=== PATIENT | male | born 1965 | race African-American/Black ===

== ENCOUNTER 2021-01-05 15:59 | Emergency (ER) | payer OTHER ==
[2021-01-05 16:15] VITALS: BP 128/80; PULSE 97; TEMP 98.3; BMI 31.8
== END 2021-01-05 17:00 | disposition home or self-care (01) ==
LOC: JER 15:59
DX: R60.9 Edema, unspecified (principal)
CPT/HCPCS: 99281-25

== ENCOUNTER 2022-07-01 08:35 | Inpatient (IN) | payer OTHER ==
[2022-07-01 09:20] VITALS: BMI 25.2
[2022-07-01] MEDS ORDERED: LOPERAMIDE HCL 2 MG CAPSULE PO PRN (12:34)
[2022-07-01] MEDS ORDERED: P-EPHED 60MG/TRIPROLIDI 2.5MG TABLET PO PRN (12:34)
[2022-07-01] MEDS ORDERED: MAGNESIUM CITRATE 300 ML BOTTLE PO PRN (12:34)
[2022-07-01] MEDS ORDERED: NICOTINE 10 MG CARTRIDGE (INHALER) IH PRN (12:34)
[2022-07-01] MEDS ORDERED: MAG HYDROX/AL HYDROX/SIMETH 30 ML UNIT-DOSE CUP PO PRN (12:34)
[2022-07-01] MEDS ORDERED: guaiFENesin 200 MG/10 ML 10 ML UNIT-DOSE CUPS PO PRN (12:34)
[2022-07-01] MEDS ORDERED: MAGNESIUM HYDROX 2400MG/30ML ORAL SUSPENSION 30 ML CUP PO PRN (12:34)
[2022-07-01] MEDS ORDERED: IBUPROFEN 400 MG TABLET (FP) PO PRN (12:34)
[2022-07-01] MEDS ORDERED: DICLOFENAC SODIUM TP PRN (13:26)
[2022-07-01] MEDS: hydrOXYzine PAMOATE 25 MG CAPSULE (FP) PO SCH ×3 (14:54→21:40)
[2022-07-01] MEDS: NICOTINE 7 MG/24 HOURS TOPICAL PATCH TD SCH (14:54)
[2022-07-01] MEDS ORDERED: methaDONE HCL 10 MG TABLET PO SCH (15:00)
[2022-07-01] MEDS: PRENATAL VITAMINS W/ FOLIC ACID TABLET (FP) PO SCH (15:59)
[2022-07-01] MEDS ORDERED: METOPROLOL TARTRATE 25 MG TABLET (FP) PO ONE (16:24)
[2022-07-01 17:26] LABS: HEMATOCRIT 45.6 % (35.4-49); HEMOGLOBIN 14.8 GM/dL (11.7-16.9); MCH 27.4 pg (25.7-33.7); MCHC 32.6 g/dl (32.0-35.9); MEAN CELL VOLUME 84.1 fl (80-96); MEAN PLT VOLUME 8.1 fl (7.5-11.1); PLATELET COUNT 344 10^3/uL (134-434); RBC 5.42 M/mm3 (4.00-5.60); RDW 14.3 % (11.9-15.9); WHITE BLOOD COUNT 6.1 K/mm3 (4.0-10.0)
[2022-07-01 17:32] LABS: CALCIUM 9.1 mg/dL (8.5-10.1)
[2022-07-01 17:33] LABS: ALBUMIN 3.2 g/dl (3.4-5.0); BLOOD UREA NITROGEN 16.1 mg/dL (7-18)
[2022-07-01 17:38] LABS: BILIRUBIN,TOTAL 0.4 mg/dL (0.2-1)
[2022-07-01 19:27] LABS: SYPHILIS W/ RPR CONF REACTIVE (NONREACTIVE)
[2022-07-01] MEDS: SENNOSIDES 8.6MG TABLET (FP) PO SCH (21:40)
[2022-07-01] MEDS: THIAMINE HCL 100 MG TABLET (FP) PO SCH (21:40)
[2022-07-01] MEDS: MELATONIN 5 MG TABLETS PO SCH (21:41)
[2022-07-01] MEDS ORDERED: LISINOPRIL 5 MG TABLET PO ONE (21:45)
[2022-07-01] MEDS: ALBUTEROL SO4 HFA INHALER IH PRN (22:10)
[2022-07-02] MEDS: hydrOXYzine PAMOATE 25 MG CAPSULE (FP) PO SCH ×5 (06:31→21:59)
[2022-07-02] MEDS: ALBUTEROL SO4 HFA INHALER IH PRN (06:31)
[2022-07-02] MEDS: PRENATAL VITAMINS W/ FOLIC ACID TABLET (FP) PO SCH (10:40)
[2022-07-02] MEDS: NICOTINE 7 MG/24 HOURS TOPICAL PATCH TD SCH (10:40)
[2022-07-02] MEDS: SENNOSIDES 8.6MG TABLET (FP) PO SCH ×2 (10:41→21:58)
[2022-07-02] MEDS: PATIENT'S OWN MEDICATION (NON-FORMULARY) (Budesonide/Glycopyr/Formoterol [Breztri Aerosphe IH SCH ×3 (11:35→11:44)
[2022-07-02] MEDS ORDERED: PNEUMOC 20-VAL CONJ-DIP CRM/PF 0.5 ML SYRINGE IM ONE (12:00)
[2022-07-02] MEDS ORDERED: FLU VACC QS2022-23(6MOS UP)/PF 60 MCG/0.5 ML SYRINGE IM ONE (12:00)
[2022-07-02] MEDS: PATIENT'S OWN MEDICATION (NON-FORMULARY) (Amlodipine Bes/Olmesartan Med [Amlodipine-Olmesa PO SCH ×2 (12:26→15:56)
[2022-07-02] MEDS: PATIENT'S OWN MEDICATION (NON-FORMULARY) (Omeprazole 20 MG Capsule.Dr) PO SCH ×4 (12:26→21:59)
[2022-07-02] MEDS ORDERED: PENICILLIN G BENZATHINE 2,400,000 UNIT/4 ML PFS IM ONE (15:44)
[2022-07-02] MEDS: IBUPROFEN 800 MG PO PRN (15:55)
[2022-07-02] MEDS: PATIENT'S OWN MEDICATION (NON-FORMULARY) (Budesonide/Glycopyr/Formoterol [Breztri Aerosphe IH PRN (15:55)
[2022-07-02] MEDS: DOCUSATE SODIUM 100 MG CAPSULE (FP) PO SCH (21:58)
[2022-07-02] MEDS: MELATONIN 5 MG TABLETS PO SCH (21:58)
[2022-07-02] MEDS: QUEtiapine FUMARATE 200 MG TABLET PO SCH (21:58)
[2022-07-02] MEDS: THIAMINE HCL 100 MG TABLET (FP) PO SCH (21:59)
[2022-07-02] MEDS: HYDROCORTISONE 2.5% TOPICAL CREAM 30 GM TUBE RC SCH (22:45)
[2022-07-03] MEDS: IBUPROFEN 800 MG PO PRN ×2 (06:54→19:15)
[2022-07-03] MEDS: hydrOXYzine PAMOATE 25 MG CAPSULE (FP) PO SCH ×5 (06:54→21:39)
[2022-07-03] MEDS: PRENATAL VITAMINS W/ FOLIC ACID TABLET (FP) PO SCH (10:06)
[2022-07-03] MEDS: PATIENT'S OWN MEDICATION (NON-FORMULARY) (Omeprazole 20 MG Capsule.Dr) PO SCH ×2 (10:07→21:39)
[2022-07-03] MEDS: PATIENT'S OWN MEDICATION (NON-FORMULARY) (Amlodipine Bes/Olmesartan Med [Amlodipine-Olmesa PO SCH (10:07)
[2022-07-03] MEDS: SENNOSIDES 8.6MG TABLET (FP) PO SCH ×2 (10:07→21:38)
[2022-07-03] MEDS: DOCUSATE SODIUM 100 MG CAPSULE (FP) PO SCH ×2 (10:07→21:38)
[2022-07-03] MEDS: HYDROCORTISONE 2.5% TOPICAL CREAM 30 GM TUBE RC SCH (10:07)
[2022-07-03] MEDS: NICOTINE 7 MG/24 HOURS TOPICAL PATCH TD SCH (10:08)
[2022-07-03 17:00] LABS: PH,URINE 5.5 (5.0-8.0); URINE APPEARANCE CLEAR; URINE BILIRUBIN NEGATIVE (NEGATIVE); URINE COLOR YELLOW; URINE GLUCOSE (UA) NEGATIVE (NEGATIVE); URINE KETONE NEGATIVE (NEGATIVE); URINE LEUK ESTERASE NEGATIVE (NEGATIVE); URINE NITRITE NEGATIVE (NEGATIVE); URINE PROTEIN NEGATIVE (NEGATIVE); URINE UROBILINOGEN 0.2 mg/dL (0.2-1.0)
[2022-07-03] MEDS: QUEtiapine FUMARATE 200 MG TABLET PO SCH (21:38)
[2022-07-03] MEDS: MELATONIN 5 MG TABLETS PO SCH (21:38)
[2022-07-03] MEDS: THIAMINE HCL 100 MG TABLET (FP) PO SCH (21:38)
[2022-07-03] MEDS: ALBUTEROL SO4 HFA INHALER IH PRN (21:41)
[2022-07-04] MEDS: hydrOXYzine PAMOATE 25 MG CAPSULE (FP) PO SCH ×5 (07:07→21:43)
[2022-07-04] MEDS: methaDONE HCL 40 MG DISPERSABLE TABLET PO SCH (07:07)
[2022-07-04] MEDS: DOCUSATE SODIUM 100 MG CAPSULE (FP) PO SCH ×2 (10:07→21:42)
[2022-07-04] MEDS: SENNOSIDES 8.6MG TABLET (FP) PO SCH ×2 (10:07→21:43)
[2022-07-04] MEDS: IBUPROFEN 800 MG PO PRN (10:08)
[2022-07-04] MEDS: ALBUTEROL SO4 HFA INHALER IH PRN ×2 (10:08→16:32)
[2022-07-04] MEDS: HYDROCORTISONE 2.5% TOPICAL CREAM 30 GM TUBE RC SCH (10:09)
[2022-07-04] MEDS: NICOTINE 7 MG/24 HOURS TOPICAL PATCH TD SCH (10:09)
[2022-07-04] MEDS: PATIENT'S OWN MEDICATION (NON-FORMULARY) (Amlodipine Bes/Olmesartan Med [Amlodipine-Olmesa PO SCH (10:09)
[2022-07-04] MEDS: PATIENT'S OWN MEDICATION (NON-FORMULARY) (Omeprazole 20 MG Capsule.Dr) PO SCH ×2 (10:09→22:10)
[2022-07-04] MEDS: PRENATAL VITAMINS W/ FOLIC ACID TABLET (FP) PO SCH (10:09)
[2022-07-04] MEDS: guaiFENesin 600 MG TABLET.ER (FP) PO SCH ×2 (11:58→21:42)
[2022-07-04] MEDS: NAPROXEN 500 MG TABLET PO PRN ×2 (14:41→21:42)
[2022-07-04] MEDS: THIAMINE HCL 100 MG TABLET (FP) PO SCH (21:42)
[2022-07-04] MEDS: QUEtiapine FUMARATE 200 MG TABLET PO SCH (21:42)
[2022-07-04] MEDS: MELATONIN 5 MG TABLETS PO SCH (22:10)
[2022-07-05] MEDS: methaDONE HCL 40 MG DISPERSABLE TABLET PO SCH (07:06)
[2022-07-05] MEDS: hydrOXYzine PAMOATE 25 MG CAPSULE (FP) PO SCH ×5 (07:06→21:31)
[2022-07-05] MEDS: PRENATAL VITAMINS W/ FOLIC ACID TABLET (FP) PO SCH (10:15)
[2022-07-05] MEDS: PATIENT'S OWN MEDICATION (NON-FORMULARY) (Amlodipine Bes/Olmesartan Med [Amlodipine-Olmesa PO SCH (10:16)
[2022-07-05] MEDS: SENNOSIDES 8.6MG TABLET (FP) PO SCH ×2 (10:16→21:31)
[2022-07-05] MEDS: DOCUSATE SODIUM 100 MG CAPSULE (FP) PO SCH ×2 (10:16→21:31)
[2022-07-05] MEDS: PATIENT'S OWN MEDICATION (NON-FORMULARY) (Omeprazole 20 MG Capsule.Dr) PO SCH ×2 (10:17→21:32)
[2022-07-05] MEDS: NICOTINE 7 MG/24 HOURS TOPICAL PATCH TD SCH (10:18)
[2022-07-05] MEDS: HYDROCORTISONE 2.5% TOPICAL CREAM 30 GM TUBE RC SCH (10:21)
[2022-07-05] MEDS: guaiFENesin 600 MG TABLET.ER (FP) PO SCH ×2 (10:21→21:31)
[2022-07-05] MEDS: NAPROXEN 500 MG TABLET PO PRN (15:43)
[2022-07-05] MEDS: ALBUTEROL SO4 HFA INHALER IH PRN (19:47)
[2022-07-05] MEDS: THIAMINE HCL 100 MG TABLET (FP) PO SCH (21:31)
[2022-07-05] MEDS: MELATONIN 5 MG TABLETS PO SCH (21:31)
[2022-07-05] MEDS: QUEtiapine FUMARATE 200 MG TABLET PO SCH (21:31)
[2022-07-06] MEDS: methaDONE HCL 40 MG DISPERSABLE TABLET PO SCH (06:56)
[2022-07-06] MEDS: hydrOXYzine PAMOATE 25 MG CAPSULE (FP) PO SCH ×5 (06:57→21:04)
[2022-07-06] MEDS: SENNOSIDES 8.6MG TABLET (FP) PO SCH ×2 (10:03→21:05)
[2022-07-06] MEDS: PRENATAL VITAMINS W/ FOLIC ACID TABLET (FP) PO SCH (10:03)
[2022-07-06] MEDS: DOCUSATE SODIUM 100 MG CAPSULE (FP) PO SCH ×2 (10:03→21:04)
[2022-07-06] MEDS: PATIENT'S OWN MEDICATION (NON-FORMULARY) (Amlodipine Bes/Olmesartan Med [Amlodipine-Olmesa PO SCH (10:04)
[2022-07-06] MEDS: PATIENT'S OWN MEDICATION (NON-FORMULARY) (Omeprazole 20 MG Capsule.Dr) PO SCH ×2 (10:05→21:06)
[2022-07-06] MEDS: guaiFENesin 600 MG TABLET.ER (FP) PO SCH ×2 (10:06→21:04)
[2022-07-06] MEDS: NICOTINE 7 MG/24 HOURS TOPICAL PATCH TD SCH ×2 (10:07→10:28)
[2022-07-06] MEDS: HYDROCORTISONE 2.5% TOPICAL CREAM 30 GM TUBE RC SCH (10:07)
[2022-07-06] MEDS: ALBUTEROL SO4 HFA INHALER IH PRN ×2 (10:29→21:14)
[2022-07-06] MEDS: NAPROXEN 500 MG TABLET PO PRN (17:55)
[2022-07-06] MEDS: QUEtiapine FUMARATE 200 MG TABLET PO SCH (21:04)
[2022-07-06] MEDS: THIAMINE HCL 100 MG TABLET (FP) PO SCH (21:05)
[2022-07-06] MEDS: MELATONIN 5 MG TABLETS PO SCH (21:06)
[2022-07-07] MEDS: methaDONE HCL 40 MG DISPERSABLE TABLET PO SCH (06:12)
[2022-07-07] MEDS: hydrOXYzine PAMOATE 25 MG CAPSULE (FP) PO SCH ×2 (06:13→10:35)
[2022-07-07] MEDS: SENNOSIDES 8.6MG TABLET (FP) PO SCH ×2 (10:31→21:26)
[2022-07-07] MEDS: DOCUSATE SODIUM 100 MG CAPSULE (FP) PO SCH ×2 (10:31→21:26)
[2022-07-07] MEDS: PRENATAL VITAMINS W/ FOLIC ACID TABLET (FP) PO SCH (10:31)
[2022-07-07] MEDS: PATIENT'S OWN MEDICATION (NON-FORMULARY) (Amlodipine Bes/Olmesartan Med [Amlodipine-Olmesa PO SCH (10:31)
[2022-07-07] MEDS: PATIENT'S OWN MEDICATION (NON-FORMULARY) (Omeprazole 20 MG Capsule.Dr) PO SCH ×2 (10:31→22:07)
[2022-07-07] MEDS: guaiFENesin 600 MG TABLET.ER (FP) PO SCH ×2 (10:32→21:26)
[2022-07-07] MEDS: NICOTINE 7 MG/24 HOURS TOPICAL PATCH TD SCH (10:32)
[2022-07-07] MEDS: HYDROCORTISONE 2.5% TOPICAL CREAM 30 GM TUBE RC SCH (10:32)
[2022-07-07] MEDS: NAPROXEN 500 MG TABLET PO PRN (10:34)
[2022-07-07] MEDS: BACITRACIN 15 GM TUBE TOPICAL OINTMENT TP SCH (13:07)
[2022-07-07] MEDS: ALBUTEROL SO4 HFA INHALER IH PRN (14:28)
[2022-07-07] MEDS: THIAMINE HCL 100 MG TABLET (FP) PO SCH (21:26)
[2022-07-07] MEDS: MELATONIN 5 MG TABLETS PO SCH (21:26)
[2022-07-07] MEDS: QUEtiapine FUMARATE 200 MG TABLET PO SCH (21:27)
[2022-07-08] MEDS: methaDONE HCL 40 MG DISPERSABLE TABLET PO SCH (07:13)
[2022-07-08] MEDS: PRENATAL VITAMINS W/ FOLIC ACID TABLET (FP) PO SCH (10:13)
[2022-07-08] MEDS: SENNOSIDES 8.6MG TABLET (FP) PO SCH ×2 (10:14→21:33)
[2022-07-08] MEDS: BACITRACIN 15 GM TUBE TOPICAL OINTMENT TP SCH (10:14)
[2022-07-08] MEDS: PATIENT'S OWN MEDICATION (NON-FORMULARY) (Omeprazole 20 MG Capsule.Dr) PO SCH ×2 (10:14→22:08)
[2022-07-08] MEDS: NICOTINE 7 MG/24 HOURS TOPICAL PATCH TD SCH (10:14)
[2022-07-08] MEDS: DOCUSATE SODIUM 100 MG CAPSULE (FP) PO SCH ×2 (10:14→21:33)
[2022-07-08] MEDS: HYDROCORTISONE 2.5% TOPICAL CREAM 30 GM TUBE RC SCH (10:14)
[2022-07-08] MEDS: PATIENT'S OWN MEDICATION (NON-FORMULARY) (Amlodipine Bes/Olmesartan Med [Amlodipine-Olmesa PO SCH (10:14)
[2022-07-08] MEDS: guaiFENesin 600 MG TABLET.ER (FP) PO SCH ×2 (10:15→21:33)
[2022-07-08] MEDS: LIDOCAINE VISCOUS 2% ORAL/TOP 15 ML UNIT-DOSE CUP MM PRN (11:13)
[2022-07-08] MEDS: NAPROXEN 500 MG TABLET PO PRN (16:49)
[2022-07-08] MEDS: MELATONIN 5 MG TABLETS PO SCH (21:33)
[2022-07-08] MEDS: THIAMINE HCL 100 MG TABLET (FP) PO SCH (21:34)
[2022-07-08] MEDS: QUEtiapine FUMARATE 200 MG TABLET PO SCH (21:34)
[2022-07-08] MEDS: ACETAMINOPHEN 325 MG TABLET (FP) PO PRN (21:34)
[2022-07-09] MEDS ORDERED: PENICILLIN G BENZATHINE 2,400,000 UNIT/4 ML PFS IM ONE (06:00)
[2022-07-09] MEDS ORDERED: methaDONE HCL 10 MG TABLET PO SCH (06:00)
[2022-07-09] MEDS: methaDONE 80 MG, methaDONE 20 MG PO SCH (07:03)
[2022-07-09] MEDS: PRENATAL VITAMINS W/ FOLIC ACID TABLET (FP) PO SCH (10:02)
[2022-07-09] MEDS: DOCUSATE SODIUM 100 MG CAPSULE (FP) PO SCH ×2 (10:03→21:36)
[2022-07-09] MEDS: SENNOSIDES 8.6MG TABLET (FP) PO SCH ×2 (10:03→21:36)
[2022-07-09] MEDS: NICOTINE 7 MG/24 HOURS TOPICAL PATCH TD SCH (10:04)
[2022-07-09] MEDS: BACITRACIN 15 GM TUBE TOPICAL OINTMENT TP SCH (10:04)
[2022-07-09] MEDS: PATIENT'S OWN MEDICATION (NON-FORMULARY) (Amlodipine Bes/Olmesartan Med [Amlodipine-Olmesa PO SCH (10:06)
[2022-07-09] MEDS: HYDROCORTISONE 2.5% TOPICAL CREAM 30 GM TUBE RC SCH (10:07)
[2022-07-09] MEDS: guaiFENesin 600 MG TABLET.ER (FP) PO SCH ×2 (10:08→21:38)
[2022-07-09] MEDS: NAPROXEN 500 MG TABLET PO PRN ×3 (10:09→21:36)
[2022-07-09] MEDS: PATIENT'S OWN MEDICATION (NON-FORMULARY) (Omeprazole 20 MG Capsule.Dr) PO SCH ×2 (10:09→21:37)
[2022-07-09] MEDS: THIAMINE HCL 100 MG TABLET (FP) PO SCH (21:35)
[2022-07-09] MEDS: QUEtiapine FUMARATE 200 MG TABLET PO SCH (21:36)
[2022-07-09] MEDS: hydrOXYzine PAMOATE 25 MG CAPSULE (FP) PO PRN (21:36)
[2022-07-09] MEDS: ALBUTEROL SO4 HFA INHALER IH PRN (21:40)
[2022-07-09] MEDS: LIDOCAINE VISCOUS 2% ORAL/TOP 15 ML UNIT-DOSE CUP MM PRN (21:41)
[2022-07-09] MEDS: MELATONIN 5 MG TABLETS PO SCH (21:44)
[2022-07-10] MEDS: methaDONE 80 MG, methaDONE 20 MG PO SCH (06:10)
[2022-07-10] MEDS: PATIENT'S OWN MEDICATION (NON-FORMULARY) (Omeprazole 20 MG Capsule.Dr) PO SCH ×2 (10:23→21:19)
[2022-07-10] MEDS: PRENATAL VITAMINS W/ FOLIC ACID TABLET (FP) PO SCH (10:23)
[2022-07-10] MEDS: SENNOSIDES 8.6MG TABLET (FP) PO SCH ×2 (10:24→21:19)
[2022-07-10] MEDS: guaiFENesin 600 MG TABLET.ER (FP) PO SCH ×2 (10:24→21:20)
[2022-07-10] MEDS: DOCUSATE SODIUM 100 MG CAPSULE (FP) PO SCH ×2 (10:24→21:19)
[2022-07-10] MEDS: HYDROCORTISONE 2.5% TOPICAL CREAM 30 GM TUBE RC SCH (10:25)
[2022-07-10] MEDS: PATIENT'S OWN MEDICATION (NON-FORMULARY) (Amlodipine Bes/Olmesartan Med [Amlodipine-Olmesa PO SCH (10:26)
[2022-07-10] MEDS: NICOTINE 7 MG/24 HOURS TOPICAL PATCH TD SCH (10:26)
[2022-07-10] MEDS: BACITRACIN 15 GM TUBE TOPICAL OINTMENT TP SCH (10:26)
[2022-07-10] MEDS: MELATONIN 5 MG TABLETS PO SCH (21:19)
[2022-07-10] MEDS: THIAMINE HCL 100 MG TABLET (FP) PO SCH (21:19)
[2022-07-10] MEDS: QUEtiapine FUMARATE 200 MG TABLET PO SCH (21:19)
[2022-07-10] MEDS: NAPROXEN 500 MG TABLET PO PRN (21:20)
[2022-07-11] MEDS: methaDONE 80 MG, methaDONE 20 MG PO SCH (07:11)
[2022-07-11] MEDS: ALBUTEROL SO4 HFA INHALER IH PRN ×2 (09:08→21:17)
[2022-07-11] MEDS: guaiFENesin 600 MG TABLET.ER (FP) PO SCH ×2 (09:09→21:13)
[2022-07-11] MEDS: PRENATAL VITAMINS W/ FOLIC ACID TABLET (FP) PO SCH (11:07)
[2022-07-11] MEDS: DOCUSATE SODIUM 100 MG CAPSULE (FP) PO SCH ×2 (11:08→21:13)
[2022-07-11] MEDS: PATIENT'S OWN MEDICATION (NON-FORMULARY) (Omeprazole 20 MG Capsule.Dr) PO SCH ×2 (11:08→21:16)
[2022-07-11] MEDS: SENNOSIDES 8.6MG TABLET (FP) PO SCH ×2 (11:08→21:14)
[2022-07-11] MEDS: BACITRACIN 15 GM TUBE TOPICAL OINTMENT TP SCH (11:09)
[2022-07-11] MEDS: PATIENT'S OWN MEDICATION (NON-FORMULARY) (Amlodipine Bes/Olmesartan Med [Amlodipine-Olmesa PO SCH (11:09)
[2022-07-11] MEDS: HYDROCORTISONE 2.5% TOPICAL CREAM 30 GM TUBE RC SCH (11:09)
[2022-07-11] MEDS: NICOTINE 7 MG/24 HOURS TOPICAL PATCH TD SCH (11:09)
[2022-07-11] MEDS: ACETAMINOPHEN 325 MG TABLET (FP) PO PRN ×2 (16:52→21:15)
[2022-07-11] MEDS: QUEtiapine FUMARATE 200 MG TABLET PO SCH (21:14)
[2022-07-11] MEDS: THIAMINE HCL 100 MG TABLET (FP) PO SCH (21:14)
[2022-07-11] MEDS: MELATONIN 5 MG TABLETS PO SCH (21:14)
[2022-07-12] MEDS: ALBUTEROL SO4 HFA INHALER IH PRN ×2 (04:21→21:19)
[2022-07-12] MEDS: NAPROXEN 500 MG TABLET PO PRN (04:25)
[2022-07-12] MEDS: methaDONE 80 MG, methaDONE 20 MG PO SCH (06:51)
[2022-07-12] MEDS: ACETAMINOPHEN 325 MG TABLET (FP) PO PRN ×2 (06:52→21:20)
[2022-07-12 06:57] VITALS: RESP 18
[2022-07-12] MEDS: SENNOSIDES 8.6MG TABLET (FP) PO SCH ×2 (10:16→21:21)
[2022-07-12] MEDS: PATIENT'S OWN MEDICATION (NON-FORMULARY) (Amlodipine Bes/Olmesartan Med [Amlodipine-Olmesa PO SCH (10:16)
[2022-07-12] MEDS: NICOTINE 7 MG/24 HOURS TOPICAL PATCH TD SCH (10:16)
[2022-07-12] MEDS: PRENATAL VITAMINS W/ FOLIC ACID TABLET (FP) PO SCH (10:16)
[2022-07-12] MEDS: DOCUSATE SODIUM 100 MG CAPSULE (FP) PO SCH ×2 (10:16→21:22)
[2022-07-12] MEDS: HYDROCORTISONE 2.5% TOPICAL CREAM 30 GM TUBE RC SCH (10:17)
[2022-07-12] MEDS: BACITRACIN 15 GM TUBE TOPICAL OINTMENT TP SCH (10:17)
[2022-07-12] MEDS: guaiFENesin 600 MG TABLET.ER (FP) PO SCH ×2 (10:17→21:21)
[2022-07-12] MEDS: PATIENT'S OWN MEDICATION (NON-FORMULARY) (Omeprazole 20 MG Capsule.Dr) PO SCH ×2 (10:17→22:26)
[2022-07-12] MEDS: MELATONIN 5 MG TABLETS PO SCH (21:21)
[2022-07-12] MEDS: QUEtiapine FUMARATE 200 MG TABLET PO SCH (21:21)
[2022-07-12] MEDS: THIAMINE HCL 100 MG TABLET (FP) PO SCH (21:21)
[2022-07-12] MEDS: hydrOXYzine PAMOATE 25 MG CAPSULE (FP) PO PRN (21:22)
[2022-07-13] MEDS: methaDONE 80 MG, methaDONE 20 MG PO SCH (07:02)
[2022-07-13] MEDS: NAPROXEN 500 MG TABLET PO PRN (07:03)
[2022-07-13] MEDS: SENNOSIDES 8.6MG TABLET (FP) PO SCH ×2 (09:37→21:20)
[2022-07-13] MEDS: PRENATAL VITAMINS W/ FOLIC ACID TABLET (FP) PO SCH (09:37)
[2022-07-13] MEDS: PATIENT'S OWN MEDICATION (NON-FORMULARY) (Omeprazole 20 MG Capsule.Dr) PO SCH ×2 (09:37→21:20)
[2022-07-13] MEDS: DOCUSATE SODIUM 100 MG CAPSULE (FP) PO SCH ×2 (09:37→21:20)
[2022-07-13] MEDS: guaiFENesin 600 MG TABLET.ER (FP) PO SCH ×2 (09:38→21:19)
[2022-07-13] MEDS: HYDROCORTISONE 2.5% TOPICAL CREAM 30 GM TUBE RC SCH (09:38)
[2022-07-13] MEDS: PATIENT'S OWN MEDICATION (NON-FORMULARY) (Amlodipine Bes/Olmesartan Med [Amlodipine-Olmesa PO SCH (09:38)
[2022-07-13] MEDS: NICOTINE 7 MG/24 HOURS TOPICAL PATCH TD SCH (09:39)
[2022-07-13] MEDS: ALBUTEROL SO4 HFA INHALER IH PRN ×2 (11:18→19:45)
[2022-07-13] MEDS: QUEtiapine FUMARATE 200 MG TABLET PO SCH (21:19)
[2022-07-13] MEDS: ACETAMINOPHEN 325 MG TABLET (FP) PO PRN (21:20)
[2022-07-13] MEDS: hydrOXYzine PAMOATE 25 MG CAPSULE (FP) PO PRN (21:20)
[2022-07-13] MEDS: THIAMINE HCL 100 MG TABLET (FP) PO SCH (21:20)
[2022-07-13] MEDS: MELATONIN 5 MG TABLETS PO SCH (21:20)
[2022-07-14] MEDS: ALBUTEROL SO4 HFA INHALER IH PRN ×2 (05:10→13:43)
[2022-07-14] MEDS: methaDONE 80 MG, methaDONE 20 MG PO SCH (06:42)
[2022-07-14] MEDS: PRENATAL VITAMINS W/ FOLIC ACID TABLET (FP) PO SCH (10:03)
[2022-07-14] MEDS: LIDOCAINE 5% TOPICAL PATCH TP SCH (10:04)
[2022-07-14] MEDS: guaiFENesin 600 MG TABLET.ER (FP) PO SCH ×2 (10:04→21:36)
[2022-07-14] MEDS: PATIENT'S OWN MEDICATION (NON-FORMULARY) (Omeprazole 20 MG Capsule.Dr) PO SCH ×2 (10:04→21:37)
[2022-07-14] MEDS: HYDROCORTISONE 2.5% TOPICAL CREAM 30 GM TUBE RC SCH (10:05)
[2022-07-14] MEDS: SENNOSIDES 8.6MG TABLET (FP) PO SCH ×2 (10:05→21:36)
[2022-07-14] MEDS: NICOTINE 7 MG/24 HOURS TOPICAL PATCH TD SCH (10:05)
[2022-07-14] MEDS: DOCUSATE SODIUM 100 MG CAPSULE (FP) PO SCH ×2 (10:05→21:36)
[2022-07-14] MEDS: PATIENT'S OWN MEDICATION (NON-FORMULARY) (Amlodipine Bes/Olmesartan Med [Amlodipine-Olmesa PO SCH (10:05)
[2022-07-14] MEDS: NAPROXEN 500 MG TABLET PO PRN ×2 (10:06→21:38)
[2022-07-14] MEDS ORDERED: HYDROCHLOROTHIAZIDE 25 MG TABLET (FP) PO ONE (13:00)
[2022-07-14] MEDS: MELATONIN 5 MG TABLETS PO SCH (21:36)
[2022-07-14] MEDS: QUEtiapine FUMARATE 200 MG TABLET PO SCH (21:36)
[2022-07-14] MEDS: LIDOCAINE PATCH REMOVAL MC SCH (21:37)
[2022-07-14] MEDS: THIAMINE HCL 100 MG TABLET (FP) PO SCH (22:01)
[2022-07-15] MEDS: methaDONE 80 MG, methaDONE 20 MG PO SCH (07:22)
[2022-07-15] MEDS: guaiFENesin 600 MG TABLET.ER (FP) PO SCH ×2 (09:28→21:20)
[2022-07-15] MEDS: PRENATAL VITAMINS W/ FOLIC ACID TABLET (FP) PO SCH (09:28)
[2022-07-15] MEDS: DOCUSATE SODIUM 100 MG CAPSULE (FP) PO SCH ×2 (09:28→21:20)
[2022-07-15] MEDS: NICOTINE 7 MG/24 HOURS TOPICAL PATCH TD SCH (09:28)
[2022-07-15] MEDS: SENNOSIDES 8.6MG TABLET (FP) PO SCH ×2 (09:28→21:20)
[2022-07-15] MEDS: PATIENT'S OWN MEDICATION (NON-FORMULARY) (Amlodipine Bes/Olmesartan Med [Amlodipine-Olmesa PO SCH (09:28)
[2022-07-15] MEDS: PATIENT'S OWN MEDICATION (NON-FORMULARY) (Omeprazole 20 MG Capsule.Dr) PO SCH ×2 (09:29→21:21)
[2022-07-15] MEDS: HYDROCORTISONE 2.5% TOPICAL CREAM 30 GM TUBE RC SCH (09:29)
[2022-07-15] MEDS: LIDOCAINE 5% TOPICAL PATCH TP SCH (09:32)
[2022-07-15] MEDS: ALBUTEROL SO4 HFA INHALER IH PRN (12:27)
[2022-07-15] MEDS: QUEtiapine FUMARATE 200 MG TABLET PO SCH (21:20)
[2022-07-15] MEDS: THIAMINE HCL 100 MG TABLET (FP) PO SCH (21:21)
[2022-07-15] MEDS: LIDOCAINE PATCH REMOVAL MC SCH (21:21)
[2022-07-15] MEDS: MELATONIN 5 MG TABLETS PO SCH (21:21)
[2022-07-16] MEDS ORDERED: PENICILLIN G BENZATHINE 2,400,000 UNIT/4 ML PFS IM ONE (06:00)
[2022-07-16] MEDS ORDERED: methaDONE HCL 10 MG TABLET PO SCH (07:45)
[2022-07-16] MEDS: methaDONE 80 MG, methaDONE 20 MG PO SCH (07:58)
[2022-07-16] MEDS: guaiFENesin 600 MG TABLET.ER (FP) PO SCH ×2 (11:05→21:16)
[2022-07-16] MEDS: NAPROXEN 500 MG TABLET PO PRN (11:05)
[2022-07-16] MEDS: SENNOSIDES 8.6MG TABLET (FP) PO SCH ×2 (11:05→21:15)
[2022-07-16] MEDS: PATIENT'S OWN MEDICATION (NON-FORMULARY) (Amlodipine Bes/Olmesartan Med [Amlodipine-Olmesa PO SCH (11:06)
[2022-07-16] MEDS: PATIENT'S OWN MEDICATION (NON-FORMULARY) (Omeprazole 20 MG Capsule.Dr) PO SCH ×2 (11:06→21:18)
[2022-07-16] MEDS: ALBUTEROL SO4 HFA INHALER IH PRN (11:07)
[2022-07-16] MEDS: LIDOCAINE 5% TOPICAL PATCH TP SCH (11:09)
[2022-07-16] MEDS: NICOTINE 7 MG/24 HOURS TOPICAL PATCH TD SCH (11:11)
[2022-07-16] MEDS: DOCUSATE SODIUM 100 MG CAPSULE (FP) PO SCH ×2 (11:11→21:16)
[2022-07-16] MEDS: PRENATAL VITAMINS W/ FOLIC ACID TABLET (FP) PO SCH (11:12)
[2022-07-16] MEDS: HYDROCORTISONE 2.5% TOPICAL CREAM 30 GM TUBE RC SCH (11:12)
[2022-07-16] MEDS: MELATONIN 5 MG TABLETS PO SCH (21:15)
[2022-07-16] MEDS: QUEtiapine FUMARATE 200 MG TABLET PO SCH (21:16)
[2022-07-16] MEDS: LIDOCAINE PATCH REMOVAL MC SCH (21:16)
[2022-07-16] MEDS: THIAMINE HCL 100 MG TABLET (FP) PO SCH (21:16)
[2022-07-17] MEDS: methaDONE 80 MG, methaDONE 20 MG PO SCH (06:34)
[2022-07-17] MEDS: ALBUTEROL SO4 HFA INHALER IH PRN ×3 (06:38→18:39)
[2022-07-17] MEDS: PRENATAL VITAMINS W/ FOLIC ACID TABLET (FP) PO SCH (11:03)
[2022-07-17] MEDS: LIDOCAINE 5% TOPICAL PATCH TP SCH (11:03)
[2022-07-17] MEDS: DOCUSATE SODIUM 100 MG CAPSULE (FP) PO SCH ×2 (11:04→21:13)
[2022-07-17] MEDS: PATIENT'S OWN MEDICATION (NON-FORMULARY) (Amlodipine Bes/Olmesartan Med [Amlodipine-Olmesa PO SCH (11:04)
[2022-07-17] MEDS: guaiFENesin 600 MG TABLET.ER (FP) PO SCH ×2 (11:04→21:13)
[2022-07-17] MEDS: SENNOSIDES 8.6MG TABLET (FP) PO SCH ×2 (11:04→21:13)
[2022-07-17] MEDS: NICOTINE 7 MG/24 HOURS TOPICAL PATCH TD SCH (11:04)
[2022-07-17] MEDS: NAPROXEN 500 MG TABLET PO PRN (11:04)
[2022-07-17] MEDS: PATIENT'S OWN MEDICATION (NON-FORMULARY) (Omeprazole 20 MG Capsule.Dr) PO SCH ×2 (11:04→21:48)
[2022-07-17] MEDS: HYDROCORTISONE 2.5% TOPICAL CREAM 30 GM TUBE RC SCH (11:07)
[2022-07-17] MEDS: QUEtiapine FUMARATE 200 MG TABLET PO SCH (21:13)
[2022-07-17] MEDS: MELATONIN 5 MG TABLETS PO SCH (21:13)
[2022-07-17] MEDS: THIAMINE HCL 100 MG TABLET (FP) PO SCH (21:13)
[2022-07-17] MEDS: hydrOXYzine PAMOATE 25 MG CAPSULE (FP) PO PRN (21:14)
[2022-07-17] MEDS: LIDOCAINE PATCH REMOVAL MC SCH (21:48)
[2022-07-18] MEDS: methaDONE 80 MG, methaDONE 20 MG PO SCH (05:57)
[2022-07-18] MEDS: PRENATAL VITAMINS W/ FOLIC ACID TABLET (FP) PO SCH (10:13)
[2022-07-18] MEDS: NAPROXEN 500 MG TABLET PO PRN (10:14)
[2022-07-18] MEDS: DOCUSATE SODIUM 100 MG CAPSULE (FP) PO SCH ×2 (10:14→21:18)
[2022-07-18] MEDS: LIDOCAINE 5% TOPICAL PATCH TP SCH (10:14)
[2022-07-18] MEDS: guaiFENesin 600 MG TABLET.ER (FP) PO SCH (10:14)
[2022-07-18] MEDS: SENNOSIDES 8.6MG TABLET (FP) PO SCH ×2 (10:14→21:19)
[2022-07-18] MEDS: PATIENT'S OWN MEDICATION (NON-FORMULARY) (Amlodipine Bes/Olmesartan Med [Amlodipine-Olmesa PO SCH (10:15)
[2022-07-18] MEDS: PATIENT'S OWN MEDICATION (NON-FORMULARY) (Omeprazole 20 MG Capsule.Dr) PO SCH ×2 (10:15→21:19)
[2022-07-18] MEDS: NICOTINE 7 MG/24 HOURS TOPICAL PATCH TD SCH (10:15)
[2022-07-18] MEDS: HYDROCORTISONE 2.5% TOPICAL CREAM 30 GM TUBE RC SCH (10:17)
[2022-07-18] MEDS: ALBUTEROL SO4 HFA INHALER IH PRN ×2 (10:17→17:09)
[2022-07-18] MEDS: PATIENT'S OWN MEDICATION (NON-FORMULARY) (Budesonide/Glycopyr/Formoterol [Breztri Aerosphe IH PRN (17:10)
[2022-07-18] MEDS: guaiFENesin 200 MG/10 ML 10 ML UNIT-DOSE CUPS PO PRN (17:18)
[2022-07-18] MEDS: MELATONIN 5 MG TABLETS PO SCH (21:18)
[2022-07-18] MEDS: QUEtiapine FUMARATE 200 MG TABLET PO SCH (21:18)
[2022-07-18] MEDS: hydrOXYzine PAMOATE 25 MG CAPSULE (FP) PO PRN (21:18)
[2022-07-18] MEDS: THIAMINE HCL 100 MG TABLET (FP) PO SCH (21:18)
[2022-07-18] MEDS: LIDOCAINE PATCH REMOVAL MC SCH (21:19)
[2022-07-19] MEDS: methaDONE 80 MG, methaDONE 20 MG PO SCH (06:06)
[2022-07-19] MEDS: guaiFENesin 200 MG/10 ML 10 ML UNIT-DOSE CUPS PO PRN ×2 (06:09→18:11)
[2022-07-19] MEDS: PRENATAL VITAMINS W/ FOLIC ACID TABLET (FP) PO SCH (09:59)
[2022-07-19] MEDS: PATIENT'S OWN MEDICATION (NON-FORMULARY) (Amlodipine Bes/Olmesartan Med [Amlodipine-Olmesa PO SCH (10:00)
[2022-07-19] MEDS: DOCUSATE SODIUM 100 MG CAPSULE (FP) PO SCH ×2 (10:00→21:12)
[2022-07-19] MEDS: HYDROCORTISONE 2.5% TOPICAL CREAM 30 GM TUBE RC SCH (10:00)
[2022-07-19] MEDS: NICOTINE 7 MG/24 HOURS TOPICAL PATCH TD SCH (10:01)
[2022-07-19] MEDS: LIDOCAINE 5% TOPICAL PATCH TP SCH (10:01)
[2022-07-19] MEDS: PATIENT'S OWN MEDICATION (NON-FORMULARY) (Omeprazole 20 MG Capsule.Dr) PO SCH ×2 (10:02→21:13)
[2022-07-19] MEDS: SENNOSIDES 8.6MG TABLET (FP) PO SCH ×2 (10:03→21:12)
[2022-07-19] MEDS: NAPROXEN 500 MG TABLET PO PRN (12:08)
[2022-07-19] MEDS: PATIENT'S OWN MEDICATION (NON-FORMULARY) (Budesonide/Glycopyr/Formoterol [Breztri Aerosphe IH PRN (17:52)
[2022-07-19] MEDS: ALBUTEROL SO4 HFA INHALER IH PRN (18:05)
[2022-07-19] MEDS: LIDOCAINE PATCH REMOVAL MC SCH (21:12)
[2022-07-19] MEDS: QUEtiapine FUMARATE 200 MG TABLET PO SCH (21:12)
[2022-07-19] MEDS: THIAMINE HCL 100 MG TABLET (FP) PO SCH (21:12)
[2022-07-19] MEDS: MELATONIN 5 MG TABLETS PO SCH (21:12)
[2022-07-20] MEDS: methaDONE 80 MG, methaDONE 20 MG PO SCH (06:57)
[2022-07-20] MEDS: PATIENT'S OWN MEDICATION (NON-FORMULARY) (Omeprazole 20 MG Capsule.Dr) PO SCH ×2 (09:38→21:19)
[2022-07-20] MEDS: SENNOSIDES 8.6MG TABLET (FP) PO SCH ×2 (09:38→21:19)
[2022-07-20] MEDS: PRENATAL VITAMINS W/ FOLIC ACID TABLET (FP) PO SCH (09:38)
[2022-07-20] MEDS: DOCUSATE SODIUM 100 MG CAPSULE (FP) PO SCH ×2 (09:38→21:18)
[2022-07-20] MEDS: HYDROCORTISONE 2.5% TOPICAL CREAM 30 GM TUBE RC SCH (09:39)
[2022-07-20] MEDS: PATIENT'S OWN MEDICATION (NON-FORMULARY) (Amlodipine Bes/Olmesartan Med [Amlodipine-Olmesa PO SCH (09:39)
[2022-07-20] MEDS: NICOTINE 7 MG/24 HOURS TOPICAL PATCH TD SCH (09:39)
[2022-07-20] MEDS: LIDOCAINE 5% TOPICAL PATCH TP SCH (09:39)
[2022-07-20] MEDS: ALBUTEROL SO4 HFA INHALER IH PRN ×2 (16:57→21:22)
[2022-07-20] MEDS: guaiFENesin 200 MG/10 ML 10 ML UNIT-DOSE CUPS PO PRN (16:57)
[2022-07-20] MEDS: hydrOXYzine PAMOATE 25 MG CAPSULE (FP) PO PRN (21:18)
[2022-07-20] MEDS: QUEtiapine FUMARATE 200 MG TABLET PO SCH (21:18)
[2022-07-20] MEDS: THIAMINE HCL 100 MG TABLET (FP) PO SCH (21:18)
[2022-07-20] MEDS: LIDOCAINE PATCH REMOVAL MC SCH (21:19)
[2022-07-20] MEDS: MELATONIN 5 MG TABLETS PO SCH (21:19)
[2022-07-21] MEDS: NAPROXEN 500 MG TABLET PO PRN (04:34)
[2022-07-21] MEDS: methaDONE 80 MG, methaDONE 20 MG PO SCH (07:27)
[2022-07-21] MEDS: guaiFENesin 200 MG/10 ML 10 ML UNIT-DOSE CUPS PO PRN ×2 (07:31→21:21)
[2022-07-21] MEDS: ALBUTEROL SO4 HFA INHALER IH PRN ×2 (07:31→19:42)
[2022-07-21] MEDS: PRENATAL VITAMINS W/ FOLIC ACID TABLET (FP) PO SCH (10:16)
[2022-07-21] MEDS: PATIENT'S OWN MEDICATION (NON-FORMULARY) (Omeprazole 20 MG Capsule.Dr) PO SCH ×2 (10:16→21:22)
[2022-07-21] MEDS: PATIENT'S OWN MEDICATION (NON-FORMULARY) (Amlodipine Bes/Olmesartan Med [Amlodipine-Olmesa PO SCH (10:16)
[2022-07-21] MEDS: LIDOCAINE 5% TOPICAL PATCH TP SCH (10:17)
[2022-07-21] MEDS: NICOTINE 7 MG/24 HOURS TOPICAL PATCH TD SCH (10:17)
[2022-07-21] MEDS: DOCUSATE SODIUM 100 MG CAPSULE (FP) PO SCH ×2 (10:22→21:20)
[2022-07-21] MEDS: SENNOSIDES 8.6MG TABLET (FP) PO SCH ×2 (10:22→21:20)
[2022-07-21] MEDS: HYDROCORTISONE 2.5% TOPICAL CREAM 30 GM TUBE RC SCH (10:25)
[2022-07-21] MEDS: MELATONIN 5 MG TABLETS PO SCH (21:19)
[2022-07-21] MEDS: hydrOXYzine PAMOATE 25 MG CAPSULE (FP) PO PRN (21:20)
[2022-07-21] MEDS: THIAMINE HCL 100 MG TABLET (FP) PO SCH (21:20)
[2022-07-21] MEDS: QUEtiapine FUMARATE 200 MG TABLET PO SCH (21:20)
[2022-07-21] MEDS: LIDOCAINE PATCH REMOVAL MC SCH (21:36)
[2022-07-22] MEDS: methaDONE 80 MG, methaDONE 20 MG PO SCH (06:05)
[2022-07-22] MEDS: guaiFENesin 200 MG/10 ML 10 ML UNIT-DOSE CUPS PO PRN (06:09)
[2022-07-22] MEDS: ALBUTEROL SO4 HFA INHALER IH PRN (06:13)
[2022-07-22 06:54] VITALS: TEMP 97.5
[2022-07-22] MEDS: LIDOCAINE 5% TOPICAL PATCH TP SCH (09:22)
[2022-07-22] MEDS: PATIENT'S OWN MEDICATION (NON-FORMULARY) (Omeprazole 20 MG Capsule.Dr) PO SCH (09:22)
[2022-07-22] MEDS: PATIENT'S OWN MEDICATION (NON-FORMULARY) (Amlodipine Bes/Olmesartan Med [Amlodipine-Olmesa PO SCH (09:22)
[2022-07-22] MEDS: DOCUSATE SODIUM 100 MG CAPSULE (FP) PO SCH (09:22)
[2022-07-22] MEDS: SENNOSIDES 8.6MG TABLET (FP) PO SCH (09:22)
[2022-07-22] MEDS: PRENATAL VITAMINS W/ FOLIC ACID TABLET (FP) PO SCH (09:22)
[2022-07-22] MEDS: NICOTINE 7 MG/24 HOURS TOPICAL PATCH TD SCH (09:23)
[2022-07-22] MEDS: HYDROCORTISONE 2.5% TOPICAL CREAM 30 GM TUBE RC SCH (09:23)
[2022-07-22 09:28] VITALS: BP 155/69; PULSE 103
== END 2022-07-22 09:28 | disposition home or self-care (01) | DRG 895 ==
LOC: YASAS 08:35 → Y5N 14:36
PROVIDERS: ADMIT Allergy & Immunology; ATTEND Psychiatry & Neurology Pain Medicine
PROC: HZ42ZZZ Group Counseling for Substance Abuse Treatment, Cognitive-Behavioral (ICD-10-PCS; principal; 2022-07-01)
DX: F11.20 Opioid dependence, uncomplicated (principal); F14.20 Cocaine dependence, uncomplicated; F19.282 Other psychoactive substance dependence with psychoactive substance-induced sleep disorder; F10.20 Alcohol dependence, uncomplicated; F12.20 Cannabis dependence, uncomplicated; F17.210 Nicotine dependence, cigarettes, uncomplicated; F20.9 Schizophrenia, unspecified; F39 Unspecified mood [affective] disorder; F41.9 Anxiety disorder, unspecified; F32.A Depression, unspecified; I10 Essential (primary) hypertension; J44.9 Chronic obstructive pulmonary disease, unspecified; K59.00 Constipation, unspecified; K08.89 Other specified disorders of teeth and supporting structures; K40.90 Unilateral inguinal hernia, without obstruction or gangrene, not specified as recurrent; M17.0 Bilateral primary osteoarthritis of knee; M19.011 Primary osteoarthritis, right shoulder; M19.012 Primary osteoarthritis, left shoulder; K59.02 Outlet dysfunction constipation; W01.0XXA Fall on same level from slipping, tripping and stumbling without subsequent striking against object, initial encounter; Y92.238 Other place in hospital as the place of occurrence of the external cause; Y99.8 Other external cause status
CPT/HCPCS: 36415; 71046-TC-FY; 80053; 81003; 82962; 85027; 86593; 86780; 86803; C9803-CS; U0003; U0005

== ENCOUNTER 2023-06-07 07:42 | Emergency (ER) | payer OTHER ==
[2023-06-07 07:52] VITALS: RESP 18; BMI 23.6
[2023-06-07] MEDS ORDERED: DOXYCYCLINE HYCLATE 100 MG CAPSULE PO ONE ×2 (08:39→09:51)
[2023-06-07 10:02] LABS: EPI CELLS 6 /uL (0-25.1); HYALINE CASTS 3 /uL (0-3.1); PH,URINE 5.5 (5.0-8.0); URINE APPEARANCE CLOUDY; URINE BACTERIA 51 /uL (0-1359); URINE BILIRUBIN 1+ (NEGATIVE); URINE COLOR DK YELLOW; URINE GLUCOSE (UA) NEGATIVE (NEGATIVE); URINE KETONE TRACE (NEGATIVE); URINE LEUK ESTERASE 2+ (NEGATIVE); URINE NITRITE NEGATIVE (NEGATIVE); URINE PROTEIN 1+ (NEGATIVE); URINE WBC 6451 /uL (0-25.8)
[2023-06-07 10:07] VITALS: BP 176/113; PULSE 94; TEMP 97.8
[2023-06-07 10:12] LABS: URINE RBC 69.1 /uL (0-23.9); YEAST NEGATIVE (NEGATIVE)
[2023-06-07 11:33] LABS: HIV INTERPRETATION NEGATIVE (NEGATIVE)
[2023-06-07 11:34] LABS: SYPHILIS W/ RPR CONF REACTIVE (NONREACTIVE)
== END 2023-06-07 10:20 | disposition left against medical advice (07) ==
LOC: JER 07:42
DX: N50.812 Left testicular pain (principal)
CPT/HCPCS: 36415; 81003; 86593; 86780; 87086; 87389; 87491; 87591; 96372; 99284-25